=== PATIENT | female | born 1950 | race Caucasian/White ===

== ENCOUNTER → 2020-06-28 | Outpatient (CLI) | payer MEDICARE, BC | LOC: CSHWCC 10:45 | PROVIDERS: ATTEND Nurse Practitioner Family | DX: I87.2 Venous insufficiency (chronic) (peripheral) (principal); S81.802D Unspecified open wound, left lower leg, subsequent encounter; E89.0 Postprocedural hypothyroidism; G70.00 Myasthenia gravis without (acute) exacerbation; I82.449 Acute embolism and thrombosis of unspecified tibial vein; L08.89 Other specified local infections of the skin and subcutaneous tissue; B96.89 Other specified bacterial agents as the cause of diseases classified elsewhere; M06.9 Rheumatoid arthritis, unspecified; M12.9 Arthropathy, unspecified; W01.198D Fall on same level from slipping, tripping and stumbling with subsequent striking against other object, subsequent encounter; W22.03XD Walked into furniture, subsequent encounter | CPT/HCPCS: 11042; 87070; 87077; 87186; 87205 ==

== ENCOUNTER 2022-08-30 12:38 | Outpatient (CLI) | payer MEDICARE, BC | END 2022-08-30 12:39 | disposition home or self-care (01) | LOC: CSHRAD 12:38 | PROVIDERS: ATTEND Internal Medicine Rheumatology | DX: M05.742 Rheumatoid arthritis with rheumatoid factor of left hand without organ or systems involvement (principal); M25.542 Pain in joints of left hand ==